=== PATIENT | female | born 1970 | race Caucasian/White ===

== ENCOUNTER 2019-04-15 08:17 | Inpatient (IN) | payer OTHER ==
[~2019-04-15 08:17] MED LIST: BUPIVACAINE HCL/PF 0.25% (2.5MG/ML) 10 ML VIAL IJ ONE
[2019-04-15 08:54] VITALS: BMI 42.5
[2019-04-15] MEDS ORDERED: MIDAZOLAM HCL 2 MG/2 ML SINGLE DOSE VIAL ONE (09:01)
[2019-04-15] MEDS ORDERED: BUPIVACAINE HCL/PF 0.5% (5 MG/ML) 30 ML VIAL IJ ONE (09:01)
[2019-04-15] MEDS ORDERED: fentaNYL CITRATE 250 MCG/5 ML VIAL ONE (09:20)
[2019-04-15] MEDS ORDERED: PROPOFOL 20 ML ONE ×2 (09:21)
[2019-04-15] MEDS ORDERED: ROCURONIUM BROMIDE 50 MG/5 ML SYRINGE ONE (09:22)
--- NOTE | 2019-04-15 09:44 | HP ---
Admitting History and Physical - Admission Chief Complaint: Morbid obesity History Source: Patient Limitations to Obtaining History: No Limitations - Past Medical History Cardiovascular: Yes: HTN, Hyperlipdemia ...LMP Comment: 10/2018 Endocrine: Yes: Diabetes Mellitus - Past Surgical History Past Surgical History: Yes: Tubal Ligation Additional Past Surgical History: Right bunion surgery - Smoking History Smoking history: Never smoked Have you smoked in the past 12 months: No - Alcohol/Substance Use Hx Alcohol Use: No - Social History ADL: Independent Home Medications - Allergies Allergies/Adverse Reactions: Allergies Allergy/AdvReac Type Severity Reaction Status Date / Time aspirin Allergy Verified 09/30/17 11:05 - Home Medications Home Medications: Ambulatory Orders Atorvastatin Ca [Lipitor] 20 mg PO HS 09/30/17 Enalapril Maleate 2.5 mg PO DAILY 09/30/17 Ferrous Sulfate [Iron] 325 mg PO TID 04/04/19 metFORMIN HCL [Metformin HCl] 1,000 mg PO BID 04/04/19 Docusate Sodium [Colace -] 100 mg PO TID #90 capsule 04/15/19 Famotidine [Pepcid] 20 mg PO BID #60 tablet 04/15/19 Ondansetron [Zofran -] 8 mg PO TID #30 tablet 04/15/19 Oxycodone HCl/Acetaminophen [Percocet 5-325 mg Tablet] 1 - 2 tab PO Q6H #28 tab MDD 4 04/15/19 Family Medical History Family History: Unremarkable Review of Systems - Review of Systems Constitutional: denies: Chills, Fever Cardiovascular: reports: No Symptoms Respiratory: reports: No Symptoms Gastrointestinal: reports: No Symptoms Neurological: reports: No Symptoms Pain Intensity: 0 Physical Examination Vital Signs: Vital Signs Temperature 98.2 F 04/15/19 08:38 Pulse Rate 56 L 04/15/19 08:38 Respiratory Rate 18 04/15/19 08:38 Blood Pressure 147/74 04/15/19 08:38 O2 Sat by Pulse Oximetry (%) Constitutional: Yes: Calm Cardiovascular: Yes: WNL Respiratory: Yes: Regular Gastrointestinal: Yes: Soft, Abdomen, Obese Neurological: Yes: Alert, Oriented Problem List - Problems (1) Morbid obesity due to excess calories Code(s): E66.01 - MORBID (SEVERE) OBESITY DUE TO EXCESS CALORIES (2) BMI 40.0-44.9, adult Code(s): Z68.41 - BODY MASS INDEX (BMI) 40.0-44.9, ADULT (3) Diabetes mellitus type 2 in obese Code(s): E11.69 - TYPE 2 DIABETES MELLITUS WITH OTHER SPECIFIED COMPLICATION; E66.9 - OBESITY, UNSPECIFIED (4) Hypertension Code(s): I10 - ESSENTIAL (PRIMARY) HYPERTENSION Qualifiers: Hypertension type: unspecified Qualified Code(s): I10 - Essential (primary ) hypertension (5) Hyperlipidemia Code(s): E78.5 - HYPERLIPIDEMIA, UNSPECIFIED Qualifiers: Hyperlipidemia type: unspecified Qualified Code(s): E78.5 - Hyperlipidemia , unspecified Assessment/Plan Laparoscopic possible open vertical sleeve gastrectomy possible liver biopsy possible upper endoscopy
[2019-04-15] MEDS ORDERED: BUPIVACAINE HCL 0.25% 125 MG/50 ML VIAL ONE (10:13)
[2019-04-15] MEDS ORDERED: ONDANSETRON 4 MG/2 ML VIAL IVPUSH PRN (10:13)
[2019-04-15] MEDS ORDERED: TERBUTALINE SULFATE 1 MG/1 ML VIAL SQ ONE (10:34)
[2019-04-15] MEDS ORDERED: ceFAZolin SODIUM 1 GM VIAL ONE ×3 (10:36)
[2019-04-15] MEDS ORDERED: DEXAMETHASONE SOD PHOSPHATE 4 MG/1 ML VIAL ONE (10:41)
[2019-04-15] MEDS ORDERED: ONDANSETRON 4 MG/2 ML VIAL ONE (10:41)
[2019-04-15] MEDS ORDERED: HYDROmorphone HCL/PF 1 MG/ML AMP ONE (11:00)
[2019-04-15] MEDS ORDERED: NEOSTIGMINE METHYLSULFATE 0.5 MG/ML - 10 ML MDV ONE (11:09)
[2019-04-15] MEDS ORDERED: GLYCOPYRROLATE 0.2 MG/1 ML VIAL ONE ×4 (11:10)
[2019-04-15] MEDS ORDERED: LIDOCAINE HCL/PF 2% SDV 5ML VIAL ONE (11:18)
[2019-04-15] MEDS ORDERED: FAMOTIDINE 20 MG/50 ML IVPB 20 MG/50 ML MG IVPB ONE (11:32)
[2019-04-15] MEDS ORDERED: BUPIVACAINE HCL/PF 0.25% (2.5MG/ML) 10 ML VIAL IJ ONE (11:32)
--- NOTE | 2019-04-15 11:35 | OP ---
Operative Note - Note: Operative Date: 04/15/19 Pre-Operative Diagnosis: Morbid obesity. DM type 2. Hypertension. hyperlipidemia. BMI 42.5 Operation: Daignostic laparoscopy. Laparoscopic vertical sleeve gastrectomy. Laparoscopic wedge liver biopsy. Laparoscopic oversewing of oozing gastric staple line Post-Operative Diagnosis: Same as Pre-op (as well as hepatomegaly and oozing from gastric staple line) Surgeon: Sterling Vyas Pvc Monitor: Desean Morrissey Anesthesia: General Specimens Removed: Greater curvature of stomach. Liver biopsy Estimated Blood Loss (mls): 30 Drains & Tubes with Location: 36 fr Bougie Operative Report Dictated: Yes
[2019-04-15] MEDS: METOCLOPRAMIDE HCL INJECTION 10 MG/2 ML VIAL IVPUSH SCH ×3 (11:45→23:13)
[2019-04-15] MEDS ORDERED: FAMOTIDINE 20 MG PREMIXED IVPB IVPB ONE (11:50)
--- NOTE | 2019-04-15 12:06 | SPEC ---
DATE OF OPERATION: 04/15/2019 PLACE OF SURGERY: [facility], [address] [place] [address] SURGEON: Sterling Vyas MD CHINCHILLA MACHINE OPERATOR: Desean Morrissey MD PREOPERATIVE DIAGNOSES: 1. Morbid obesity. 2. Diabetes mellitus type 2. 3. Hypertension. 4. Hypercholesterolemia. 5. BMI 42.5. POSTOPERATIVE DIAGNOSES: 1. Morbid obesity. 2. Diabetes mellitus type 2. 3. Hypertension. 4. Hypercholesterolemia. 5. BMI 42.5. 6. Hepatomegaly. 7. Bleeding at the gastric staple line. PROCEDURE: 1. Diagnostic laparoscopy. 2. Laparoscopic vertical sleeve gastrectomy. 3. Laparoscopic wedge liver biopsy. 4. Laparoscopic oversewing of gastric staple line. SPECIMEN: 1. Greater curvature of the stomach. 2. Liver biopsy. ESTIMATED BLOOD LOSS: 30 mL. DRAINS: None. ANESTHESIA: GET. BOUGIE SIZE: 36-Wolof. REASON FOR PROCEDURE: This is a 48-year-old female who presented to the office for weight loss options. After describing different options, it was decided to proceed with laparoscopic, possible open vertical sleeve gastrectomy, possible liver biopsy, possible upper endoscopy. RISKS AND BENEFITS: After describing the different options for weight loss management, the patient decided to proceed with a laparoscopic, possible open vertical sleeve gastrectomy. The patient was seen by the respective subspecialties and cleared for surgery. The risks and benefits of the procedure were explained. These included bleeding, infection, hernia, MO, DVT, PE, injury to surrounding structures including the liver, colon, bowel, spleen, esophagus, vessel injury, nerve injury, weight regain, gastric leak, staple line leak, sleeve leak, obstruction, vitamin deficiency, hair loss and as some of the possible complications. The patient understood and signed informed consent. DESCRIPTION OF PROCEDURE: The patient was placed supine on the operating room table. The patient underwent general endotracheal intubation. The arms were brought out at 90 degrees and secured. A footboard was placed and the legs were secured laterally with padding. The abdomen was prepped and draped in the usual sterile fashion. A timeout was performed. An incision was made in the left upper quadrant and a Veress needle inserted. Pneumoperitoneum was established. Subsequently, the Veress needle was removed and a 5-mm trocar was placed under direct visualization with the laparoscope. The laparoscopic camera was then inserted and inspection of the abdominal cavity was performed. An incision was then made in the supraumbilical area and a 15-mm trocar was placed under direct visualization. A 5-mm trocar was then placed in the right upper quadrant and a 5-mm trocar was placed below the left subcostal margin. A stab wound was made in the subxiphoid area and a Nini clamp inserted and removed to dilate the tract. A Rocco liver retractor was inserted. The post was secured at the bedside by the nursing staff. The patient was placed in steep reverse Trendelenburg position and the Rocco liver retractor was used to secure the liver towards the anterior abdominal wall. The pylorus was identified and 6 cm proximal to it, the lesser sac was entered using the LigaSure device. All lateral attachments to the greater curvature of the stomach, including the short gastric vessels, were ligated using the LigaSure device toward the gastrosplenic and gastrophrenic ligaments. Once this was done in its entirety, it was confirmed that all tubes within the nasal or oropharyngeal cavity, including a temperature probe were removed by Anesthesia. The bougie was then inserted by Anesthesia. Transection of the stomach was then begun staying adjacent to the bougie but away from the angularis. Transection of the stomach was performed near the portion of the stomach where the lesser sac was entered. Two laparoscopic Endo-YOHAN black inge were used at this location. Laparoscopic Endo YOHAN purple staple loads were then used for the remainder of the transection until the greater curvature of the stomach was fully transected. This was done staying close to the bougie. Care was taken to stay away from the angle of His cephalad. The staple line was then inspected. Hemostasis was identified. A leak test was then performed. It was clamped distally to the staple line. Irrigation solution was placed in the left upper quadrant and air was insufflated by Anesthesia into the sleeve. No leaks were identified. No obstruction was identified. This was done through the entirety of the staple line. The stomach was suctioned and the bougie removed fully intact under direct visualization. At this point, the irrigation solution was suctioned and again, hemostasis was noted. A wedge liver biopsy was then performed. The left lobe of the liver was identified. A portion of the edge of the left lobe of the liver was grasped. Using electrocautery, a wedge of the left liver was excised. The specimen was removed and sent off the field. Hemostasis of the wedge liver biopsy site was attained and noted using electrocautery. The 15-mm supraumbilical trocar was then removed and the greater curvature specimen removed from the site using a sponge stick gomez. A Raffaele-Eliseo device was then used to close the fascia with a 0 Vicryl suture at the site. Again, hemostasis was noted. The Rocco liver retractor was then removed under direct visualization. Pneumoperitoneum was desufflated. Hemostasis was noted at all incision sites and Marcaine was injected at all incision sites. A 3-0 Vicryl suture was used to close the deep subcutaneous tissue at the 15-mm incision site. All incision sites were closed using 4-0 Biosyn. Sterile dressings were applied. The patient tolerated the procedure well and was transferred to the recovery room in stable condition. ADDENDUM: Because of oozing at the gastric staple line, this was oversewn using the Endo Stitch device. After the staple line was oversewn, hemostasis was noted. The patient tolerated the procedure well, returned to recovery in stable condition. Ashtyn WILCOX/[id number]
[2019-04-15] MEDS: ACETAMINOPHEN 1000 MG/100 ML VIAL (NON FORMULARY) IVPB SCH ×3 (12:30→23:12)
[2019-04-15 12:44] LABS: HEMATOCRIT 34.5 % (32.4-45.2); HEMOGLOBIN 11.8 GM/dl (10.7-15.3); MCH 29.4 pg (25.7-33.7); MCHC 34.1 g/dl (32.0-36.0); MEAN CELL VOLUME 86.2 fl (80-96); PLATELET COUNT 163 K/MM3 (134-434); RDW 15.8 % (11.6-15.6); WHITE BLOOD COUNT 12.6 K/mm3 (4.0-10.8)
[2019-04-15 12:59] LABS: ALBUMIN 3.7 g/dl (3.4-5.0); BILIRUBIN,TOTAL 0.4 mg/dl (0.2-1); CALCIUM 8.8 mg/dl (8.5-10); CREATININE 0.6 mg/dl (0.55-1.3); POTASSIUM 3.9 mmol/L (3.5-5.1); TOT PROT 6.8 g/dl (6.4-8.2)
[2019-04-15] MEDS: ENALAPRIL MALEATE 2.5 MG TABLET (FP) PO SCH (13:41)
[2019-04-15] MEDS: INSULIN SLIDING SCALE (NOVOLOG) 1 VIAL SQ SCH ×2 (13:41→17:32)
[2019-04-15] MEDS: SODIUM CHLORIDE 1,000 ML IV SCH (13:42)
[2019-04-15] MEDS: ONDANSETRON 4 MG/2 ML VIAL IVPUSH SCH ×4 (13:42→23:13)
[2019-04-15] MEDS: HYDROmorphone HCL CARPU-JECT 1 MG/1 ML DISP.SYRIN IVPB PRN ×2 (16:15→20:05)
[2019-04-15] MEDS ORDERED: ENALAPRIL MALEATE 2.5 MG TABLET (FP) PO ONE (16:30)
[2019-04-15] MEDS: ENOXAPARIN NA (PORCINE) 40 MG/0.4 ML DISP.SYRIN SQ SCH (22:11)
[2019-04-15] MEDS: FAMOTIDINE 20 MG/50 ML IVPB 20 MG/50 ML MG IVPB SCH (22:11)
[2019-04-16] MEDS: ONDANSETRON 4 MG/2 ML VIAL IVPUSH SCH ×4 (03:02→17:09)
[2019-04-16] MEDS: HYDROmorphone HCL CARPU-JECT 1 MG/1 ML DISP.SYRIN IVPB PRN ×2 (03:08→06:41)
[2019-04-16] MEDS: METOCLOPRAMIDE HCL INJECTION 10 MG/2 ML VIAL IVPUSH SCH ×2 (05:56→12:43)
[2019-04-16] MEDS: ACETAMINOPHEN 1000 MG/100 ML VIAL (NON FORMULARY) IVPB SCH (05:56)
[2019-04-16] MEDS: INSULIN SLIDING SCALE (NOVOLOG) 1 VIAL SQ SCH ×3 (06:53→17:09)
--- NOTE | 2019-04-16 07:43 | DS ---
Physical Exam: SUBJECTIVE: Patient seen and examined. Reports she is doing well today. Wants to go home. Has been oob without issue. Voiding. No flatus yet. No n/v. Denies cp/sob, calf pain. OBJECTIVE: Vital Signs Period Temp Pulse Resp BP Sys/Leigh Pulse Ox Last 24 Hr 97.8 F-98.5 F 56-77 18-20 131-172/67-95 95-100 PHYSICAL EXAM GENERAL: The patient is awake, alert, and fully oriented, in no acute distress. HEAD: Normal with no signs of trauma. LUNGS: Unlabored on RA. No accessory muscle use. ABDOMEN: Soft, minimally ttp at incision sites. Nondistended, normoactive bowel sounds, no guarding, no rebound. Bandages c/d/i. EXTREMITIES: 2+ pulses, warm, well-perfused, no edema. No calf ttp. LABS Laboratory Results - last 24 hr 04/15/19 04/15/19 04/15/19 08:37 08:40 09:30 WBC RBC Hgb Hct MCV MCH MCHC RDW Plt Count MPV Sodium Potassium Chloride Carbon Dioxide Anion Gap BUN Creatinine Est GFR (CKD-EPI)AfAm Est GFR (CKD-EPI)NonAf POC Glucometer 139 Random Glucose Calcium Total Bilirubin AST ALT Alkaline Phosphatase Total Protein Albumin Urine HCG, Qual Negative Hep C Ab Diagnostic HIV 1&2 Ag/Ab, 4th Gen Non reactive 04/15/19 04/15/19 04/15/19 12:20 12:20 12:20 WBC 12.6 H RBC 4.00 Hgb 11.8 Hct 34.5 MCV 86.2 MCH 29.4 MCHC 34.1 RDW 15.8 H Plt Count 163 MPV 9.0 Sodium 136 Potassium 3.9 Chloride 103 Carbon Dioxide 25 Anion Gap 8 BUN 12.0 Creatinine 0.6 Est GFR (CKD-EPI)AfAm 124.05 Est GFR (CKD-EPI)NonAf 107.03 POC Glucometer Random Glucose 153 H Calcium 8.8 Total Bilirubin 0.4 AST 37 ALT 34 Alkaline Phosphatase 85 Total Protein 6.8 Albumin 3.7 Urine HCG, Qual Hep C Ab Diagnostic 0.1 HIV 1&2 Ag/Ab, 4th Gen 04/15/19 04/15/19 04/16/19 13:10 17:30 06:52 WBC RBC Hgb Hct MCV MCH MCHC RDW Plt Count MPV Sodium Potassium Chloride Carbon Dioxide Anion Gap BUN Creatinine Est GFR (CKD-EPI)AfAm Est GFR (CKD-EPI)NonAf POC Glucometer 170 193 152 Random Glucose Calcium Total Bilirubin AST ALT Alkaline Phosphatase Total Protein Albumin Urine HCG, Qual Hep C Ab Diagnostic HIV 1&2 Ag/Ab, 4th Gen HOSPITAL COURSE: HOSPITAL COURSE: The patient was admitted to the Med-Surg Unit after elective bariatric surgery. Now, s/p laparoscopic vertical sleeve gastrectomy. The day of surgery, the patient ambulated the hallways with assistance. The patient was monitored with remote tele/continuous pulse ox. Narcotic and non-narcotic pain management control was achieved with oral and IV pain control. Upper GI series was obtained the following morning and no leak, extravastion or gastric outlet obstruction. Started on a Bariatric Stage 1 diet and tolerated well. Maxine-operative IV ABX were administered in addition to GI prophylaxis. DVT prophylaxis was achieved with SCDs and early ambulation. The discharge instructions and an oral pain management plan were reviewed with the patient. All questions answered. Above plan discussed with Dr. Vyas and agreed. Date of Admission:04/15/19 Date of Discharge: 04/16/19 Minutes to complete discharge: 20 Discharge Summary Problems reviewed: Yes Reason For Visit: MORBID OBESITY Current Active Problems BMI 40.0-44.9, adult (Acute) Diabetes mellitus type 2 in obese (Acute) Hepatomegaly (Acute) Hyperlipidemia (Acute) Hypertension (Acute) Morbid obesity due to excess calories (Acute) Condition: Stable - Instructions Diet, Activity, Other Instructions: [facility] Sterling Vyas M.D. [address] [facility] 5th [place] [address] Robotic, [place] [address] Postoperative Instructions for Bariatric Surgery Activity: Resume normal everyday activity as tolerated. You may walk and climb stairs without any limitation. We encourage you to walk as often as you can Do not lift anything more than 10 pounds for 8 weeks. At that time, you can return to full activity, including the gym, without limitation. Do not drive a motor vehicle while taking prescribes narcotic pain medication. Wound Care: If you have a bandage in place, leave it on for 3 days. At that time you may remove the outer bandage. If there are strips of tape on the skin after removing the outer bandage, leave them in place. They will fall off by themselves. Do not remove them. If there is clear glue on the skin after removing the outer bandage, leave it in place. Do not pick at it or peel it off. You may shower after taking the outer bandage off, 3 days after your surgery. If incisions become red, warm or open, please call the office. Diet: Continue a sugar-free, non-carbonated Clear liquid diet three times a day for the first week-Stage I diet. In addition, you should drink 8 ounces of water every hour. When drinking, sips should be slow and steady, not large and quick. After the first week, call the office to be advanced to the next dietary stage. Do not advance stages until instructed. Your diet will be advanced over the phone each week. Medications/Pain Management: You may resume previous medications unless told otherwise. The pills may be swallowed whole or broken if scored. You may take the prescribed narcotic pain medication as needed. If the narcotic medication is not needed for pain control, you may take Tylenol. Avoid all other pain medications including Advil, Ibuprofen, Motrin, Aspirin, Naprosyn, Aleve, Celebrex. You will receive Pepcid. Please take this twice a day as prescribed. Dizziness,Headaches/Gas Pain: Make sure you are getting enough fluids daily. Patients on diuretics or water pills may need medication adjusted. Some fluids such as broth or Gatorade may help. Gas pains are common in the first few weeks after surgery. At times they can be worse than surgical pain. Walking can help. You can also use Mylanta, Maalox, or Gas-X. Vomiting/Nausea: This may occur if you eat too fast, don't chew, or eat too much. Go back to fluids. If the vomiting or nausea persists, call the office. Constipation/Diarrhea: You may experience a change in bowel habits. Many things affect this, including a decrease in food intake, not enough fluid and taking pain medication. Some people experience diarrhea after the barium swallow in x-ray. If either persist, call the office. Follow up: Call the office at [phone] for an appointment 2 weeks after your surgical procedure. Disposition: HOME - Home Medications Comprehensive Discharge Medication List: Ambulatory Orders Atorvastatin Ca [Lipitor] 20 mg PO HS 09/30/17 Enalapril Maleate 2.5 mg PO DAILY 09/30/17 Ferrous Sulfate [Iron] 325 mg PO TID 04/04/19 metFORMIN HCL [Metformin HCl] 1,000 mg PO BID 04/04/19 Cholecalciferol (Vitamin D3) [Vitamin D3] 1,000 unit PO DAILY 04/15/19 Cyanocobalamin (Vitamin B-12) [B-12] 1,000 mcg PO DAILY 04/15/19 Docusate Sodium [Colace -] 100 mg PO TID #90 capsule 04/15/19 Famotidine [Pepcid] 20 mg PO BID #60 tablet 04/15/19 Naproxen Sodium [Aleve] 220 mg PO DAILY PRN 04/15/19 Ondansetron [Zofran -] 8 mg PO TID #30 tablet 04/15/19 Oxycodone HCl/Acetaminophen [Percocet 5-325 mg Tablet] 1 - 2 tab PO Q6H #28 tab MDD 4 04/15/19 Problem List - Problems (1) Morbid obesity due to excess calories Code(s): E66.01 - MORBID (SEVERE) OBESITY DUE TO EXCESS CALORIES This patient is new to me today: Yes Date on this admission: 04/17/19 Emergency Visit: No Critical Care patient: No - Discharge Referral Referred to [facility] No
[2019-04-16 07:53] LABS: HEMATOCRIT 34.5 % (32.4-45.2); HEMOGLOBIN 11.4 GM/dl (10.7-15.3); MCH 28.6 pg (25.7-33.7); MEAN CELL VOLUME 86.6 fl (80-96); MEAN PLT VOLUME 9.3 fl (7.5-11.1); PLATELET COUNT 202 K/MM3 (134-434); RBC 3.99 M/mm3 (3.60-5.2); RDW 15.6 % (11.6-15.6); WHITE BLOOD COUNT 9.4 K/mm3 (4.0-10.8)
[2019-04-16 07:59] LABS: ALBUMIN 3.4 g/dl (3.4-5.0); BILIRUBIN,TOTAL 0.4 mg/dl (0.2-1); CALCIUM 8.4 mg/dl (8.5-10); CREATININE 0.6 mg/dl (0.55-1.3); POTASSIUM 4.4 mmol/L (3.5-5.1); TOT PROT 6.3 g/dl (6.4-8.2)
--- NOTE | 2019-04-16 09:05 | PN ---
Progress Note, Physician Chief Complaint: s/p gastric sleeve under general anesthesia History of Present Illness: post op day one - Current Medication List Current Medications: Active Medications Enalapril Maleate (Vasotec -) 2.5 mg PO DAILY [facility] Last Admin: 04/15/19 13:41 Dose: Not Given Enoxaparin Sodium (Lovenox -) 40 mg SQ BID [facility] Last Admin: 04/15/19 22:11 Dose: 40 mg Hydromorphone HCl (Dilaudid Injection -) 1 mg IVPB Q3H PRN PRN Reason: PAIN LEVEL 4 - 6 Last Admin: 04/16/19 06:41 Dose: 1 mg Famotidine/Sodium Chloride (Pepcid 20 Mg Premixed Ivpb -) 20 mg in 50 mls @ 100 mls/hr IVPB BID [facility] Last Admin: 04/15/19 22:11 Dose: 100 mls/hr Sodium Chloride (Normal Saline -) 1,000 mls @ 150 mls/hr IV ASDIR [facility] Last Admin: 04/15/19 13:42 Dose: Not Given Insulin Aspart (Novolog Vial Sliding Scale -) 1 vial SQ TIDAC [facility]; Protocol Last Admin: 04/16/19 06:53 Dose: Not Given Metoclopramide HCl (Reglan Injection -) 10 mg IVPUSH Q6H [facility] Last Admin: 04/16/19 05:56 Dose: 10 mg Ondansetron HCl (Zofran Injection) 4 mg IVPUSH Q4H [facility] Last Admin: 04/16/19 06:42 Dose: 4 mg - Objective Vital Signs: Vital Signs Temperature 98.2 F 04/16/19 06:00 Pulse Rate 63 04/16/19 06:00 Respiratory Rate 18 04/16/19 06:00 Blood Pressure 144/73 04/16/19 06:00 O2 Sat by Pulse Oximetry (%) 96 04/16/19 08:02 Constitutional: Yes: Well Nourished Cardiovascular: Yes: WNL Respiratory: Yes: WNL Gastrointestinal: Yes: Tenderness Labs: CBC, BMP 04/16/19 07:05 04/16/19 07:05 Assessment/Plan No adverse events, nausea and vomiting are controlled, dept of anesthesiology will sign off care at this time
[2019-04-16] MEDS ORDERED: PT OWN MED DRAWER 7, Y5N ONE (09:44)
[2019-04-16] MEDS: FAMOTIDINE 20 MG/50 ML IVPB 20 MG/50 ML MG IVPB SCH (09:49)
[2019-04-16] MEDS: ENALAPRIL MALEATE 2.5 MG TABLET (FP) PO SCH (09:49)
[2019-04-16] MEDS: ENOXAPARIN NA (PORCINE) 40 MG/0.4 ML DISP.SYRIN SQ SCH (09:49)
[2019-04-16] MEDS: SODIUM CHLORIDE 1,000 ML IV SCH (12:46)
[2019-04-16 13:40] VITALS: BP 164/69; PULSE 64; TEMP 98.4
--- NOTE | 2019-04-17 15:58 | PATH ---
Surgical Pathology Report Patient Name: GREG MIRZA Med. Rec. #: [id number] /Age/Gender: 1970 (Age: 48) / F Account: [id number] Location: [facility] Taken: 04/15/2019 Received: 04/15/2019 Reported: 04/17/2019 Physicians: Sterling Vyas M.D. Specimen(s) Received A: GREATER CURVATURE STOMACH B: LIVER BIOPSY Clinical History Morbid obesity Final Diagnosis A. GREATER CURVATURE, STOMACH, LAPAROSCOPIC GASTRIC SLEEVE EXCISION:: PORTION OF STOMACH SHOWING MILD CHRONIC MUCOSAL INFLAMMATION. IMMUNOSTAIN IS NEGATIVE FOR H. PYLORI ORGANISMS. B. LIVER, BIOPSY: LIVER SHOWING MILD STEATOSIS (10-15%) AND MILD STEATOHEPATITIS (GRADE 1). TRICHROME STAIN SHOWS NO APPRECIABLE INCREASE IN FIBROSIS. IRON STAIN IS NEGATIVE. Electronically Signed Rosa Gorman M.D. Gross Description A. Received in formalin, labeled "greater curvature of stomach," is a 17.5 x 3.3 x 2.2 cm. portion of stomach with a stapled margin of resection. The serosa is presley-potts with minimal attached fat. The mucosa is presley-pink with normal folds. No mucosal masses are identified. [address] sections are submitted in one cassette. B. Received in formalin, labeled "liver biopsy" is a 1.8 x 1.7 x 0.8 cm portion of yellow-brown tissue. The specimen is sectioned and entirely submitted in one cassette. AE/04/16/2019 ebram/04/16/2019
== END 2019-04-16 16:58 | disposition home or self-care (01) | DRG 403 ==
LOC: FM/S 08:17
PROVIDERS: ADMIT Surgery; ATTEND Surgery
PROC: 0DJ04ZZ Inspection of Upper Intestinal Tract, Percutaneous Endoscopic Approach (ICD-10-PCS; 2019-04-15)
PROC: 0DB64Z3 Excision of Stomach, Percutaneous Endoscopic Approach, Vertical (ICD-10-PCS; principal; 2019-04-15 10:44)
PROC: 0FB24ZX Excision of Left Lobe Liver, Percutaneous Endoscopic Approach, Diagnostic (ICD-10-PCS; 2019-04-15 10:44)
DX: E66.01 Morbid (severe) obesity due to excess calories (principal); Z68.41 Body mass index [BMI] 40.0-44.9, adult; I10 Essential (primary) hypertension; E78.5 Hyperlipidemia, unspecified; E11.9 Type 2 diabetes mellitus without complications; R16.0 Hepatomegaly, not elsewhere classified
CPT/HCPCS: 36415; 74241-TC-FY; 80053; 82962; 84703; 85027; 86803; 87389; 88305-TC; 88313-TC; 88342-TC; 94760; J0131; J7030

== ENCOUNTER 2020-09-14 09:05 | Inpatient (IN) | payer OTHER ==
[2020-09-04 11:27] VITALS: BMI 35.5
[2020-09-14] MEDS ORDERED: BUPIVACAINE HCL/PF 0.5% (5 MG/ML) 30 ML VIAL IJ ONE (10:45)
[2020-09-14] MEDS ORDERED: MIDAZOLAM HCL 2 MG/2 ML SINGLE DOSE VIAL ONE ×3 (10:45→14:05)
[2020-09-14] MEDS ORDERED: BUPIVACAINE HCL 50 ML ONE (11:46)
[2020-09-14] MEDS ORDERED: SUCCINYLCHOLINE CHLORIDE 200 MG/10 ML SYRINGE ONE (11:53)
[2020-09-14] MEDS ORDERED: PROPOFOL 20 ML ONE ×7 (11:53→14:01)
[2020-09-14] MEDS ORDERED: ePHEDrine SULFATE 50 MG/1 ML AMPULE ONE (12:09)
[2020-09-14] MEDS ORDERED: TRANEXAMIC ACID 1000 MG/10 ML VIAL ONE (12:12)
[2020-09-14] MEDS ORDERED: KETOROLAC TROMETHAMINE 30 MG/1 ML VIAL ONE (12:13)
[2020-09-14] MEDS ORDERED: ONDANSETRON 4 MG/2 ML VIAL ONE (12:13)
[2020-09-14] MEDS ORDERED: DEXAMETHASONE SOD PHOSPHATE 4 MG/1 ML VIAL ONE (12:13)
[2020-09-14] MEDS ORDERED: ceFAZolin SODIUM 1 GM VIAL ONE (12:13)
[2020-09-14] MEDS ORDERED: VANCOMYCIN 1,000 MG VIAL (RESTRICTED TO ID ONLY) ONE (12:30)
[2020-09-14] MEDS ORDERED: BUPIVICAINE 0.25%/MORPH PF/KETOROLAC - 51ML DISP.SYRINGE IA ONE ×2 (12:53→14:49)
[2020-09-14 13:36] LABS: HIV INTERPRETATION NEGATIVE (NEGATIVE)
[2020-09-14] MEDS ORDERED: ONDANSETRON 4 MG/2 ML VIAL IVPUSH PRN (15:37)
[2020-09-14] MEDS ORDERED: MAG HYDROX/AL HYDROX/SIMETH 30 ML UNIT-DOSE CUP PO PRN (15:37)
[2020-09-14] MEDS ORDERED: MAGNESIUM HYDROX 2400MG/30ML ORAL SUSPENSION 30 ML CUP PO PRN (15:37)
[2020-09-14] MEDS ORDERED: oxyCODONE HCL 5 MG TABLET PO PRN ×2 (15:42)
[2020-09-14] MEDS ORDERED: LACTATED RINGERS SOLUTION 1,000 ML IV SCH (15:45)
[2020-09-14] MEDS: ACETAMINOPHEN 325 MG TABLET (FP) PO SCH ×2 (17:10→21:19)
[2020-09-14] MEDS: CEFAZOLIN 2 GM/D5W 2 GM/50 ML ML IVPB SCH (20:00)
[2020-09-14] MEDS: GABAPENTIN 300 MG CAPSULE PO SCH (21:19)
[2020-09-14] MEDS: FERROUS SO4 325 MG TABLET (FP) PO SCH (21:19)
[2020-09-14] MEDS: oxyCODONE HCL 10 MG SUSTAINED ACTING TABLET PO SCH (21:30)
[2020-09-14] MEDS: SENNOSIDES/DOCUSATE COMBO (SENNA PLUS) TABLET (UD) PO SCH (21:30)
[2020-09-14] MEDS: INSULIN SLIDING SCALE (NOVOLOG) 1 VIAL SQ SCH (21:31)
[2020-09-14] MEDS ORDERED: GABAPENTIN 300 MG CAPSULE PO SCH (22:00)
[2020-09-14] MEDS ORDERED: ATORVASTATIN CA 20 MG TABLET (FP) PO SCH (22:00)
[2020-09-15] MEDS: CEFAZOLIN 2 GM/D5W 2 GM/50 ML ML IVPB SCH ×2 (03:11→14:45)
[2020-09-15] MEDS: ACETAMINOPHEN 325 MG TABLET (FP) PO SCH ×3 (03:11→16:56)
[2020-09-15] MEDS: FERROUS SO4 325 MG TABLET (FP) PO SCH ×2 (06:17→14:44)
[2020-09-15] MEDS: INSULIN SLIDING SCALE (NOVOLOG) 1 VIAL SQ SCH ×3 (06:17→16:57)
[2020-09-15 08:15] LABS: HEMATOCRIT 27.6 % (32.4-45.2); HEMOGLOBIN 9.2 GM/dl (10.7-15.3); MCH 29.7 pg (25.7-33.7); MCHC 33.4 g/dl (32.0-36.0); MEAN CELL VOLUME 88.9 fl (80-96); PLATELET COUNT 141 K/MM3 (134-434); RDW 13.7 % (11.6-15.6); WHITE BLOOD COUNT 6.2 K/mm3 (4.0-10.8)
[2020-09-15 08:16] LABS: CALCIUM 8.5 mg/dl (8.5-10); CREATININE 0.8 mg/dl (0.55-1.3); POTASSIUM 4.5 mmol/L (3.5-5.1)
[2020-09-15] MEDS ORDERED: SODIUM CHLORIDE 500 ML IV STA (09:58)
[2020-09-15] MEDS ORDERED: ENOXAPARIN NA (PORCINE) 30 MG/0.3 ML DISP.SYRIN SQ SCH ×2 (10:00)
[2020-09-15] MEDS ORDERED: MULTIVITAMINS (DAILY MVI) TABLET (FP) PO SCH (10:00)
[2020-09-15] MEDS ORDERED: PANTOPRAZOLE 40 MG TABLET PO SCH (10:00)
[2020-09-15] MEDS ORDERED: ENALAPRIL MALEATE 2.5 MG TABLET PO SCH (10:00)
[2020-09-15] MEDS: oxyCODONE HCL 10 MG SUSTAINED ACTING TABLET PO SCH (10:29)
[2020-09-15] MEDS: SENNOSIDES/DOCUSATE COMBO (SENNA PLUS) TABLET (UD) PO SCH (10:29)
[2020-09-15] MEDS: GABAPENTIN 300 MG CAPSULE PO SCH (10:29)
[2020-09-15 14:26] VITALS: BP 93/41; PULSE 66; TEMP 98.6
== END 2020-09-15 17:30 | disposition home or self-care (01) | DRG 301 ==
LOC: FM/S 09:05
PROVIDERS: ADMIT Orthopaedic Surgery Sports Medicine; ATTEND Nurse Practitioner Acute Care
PROC: 8E0Y0CZ Robotic Assisted Procedure of Lower Extremity, Open Approach (ICD-10-PCS; 2020-09-14)
PROC: 0SR90JZ Replacement of Right Hip Joint with Synthetic Substitute, Open Approach (ICD-10-PCS; principal; 2020-09-14 12:26)
DX: M16.11 Unilateral primary osteoarthritis, right hip (principal); I10 Essential (primary) hypertension; E78.5 Hyperlipidemia, unspecified; D64.9 Anemia, unspecified; E11.9 Type 2 diabetes mellitus without complications; Z79.84 Long term (current) use of oral hypoglycemic drugs
CPT/HCPCS: 36415; 73502-TC-RT-FY; 80048; 82962; 85027; 86803; 87389; 94760; 97010-GP; 97116-GP; 97162-GP

== ENCOUNTER 2021-08-16 10:14 | Emergency (ER) | payer OTHER ==
[2021-08-16 10:36] VITALS: BP 138/81; PULSE 56; TEMP 98.2; BMI 35.5
[2021-08-16] MEDS ORDERED: METHOCARBAMOL 500 MG TABLET PO ONE (11:30)
[2021-08-16] MEDS ORDERED: ACETAMINOPHEN 325 MG TABLET (FP) PO ONE (11:30)
[2021-08-16] MEDS ORDERED: KETOROLAC TROMETHAMINE 60 MG/2 ML VIAL IM ONE (11:30)
[2021-08-16] MEDS ORDERED: LIDOCAINE 5% TOPICAL PATCH TP ONE (11:31)
[2021-08-16] MEDS ORDERED: ACETAMINOPHEN 500 MG TABLET (FP) ONE (11:40)
[2021-08-16] MEDS ORDERED: METHOCARBAMOL 500 MG TABLET ONE (11:40)
[2021-08-16] MEDS ORDERED: KETOROLAC TROMETHAMINE 15 MG/ML VIAL ONE (11:40)
[2021-08-16] MEDS ORDERED: LIDOCAINE 5% TOPICAL PATCH ONE (11:40)
== END 2021-08-16 13:03 | disposition home or self-care (01) ==
LOC: JER 10:14 → JERFT 10:14
PROC: 3E0233Z Introduction of Anti-inflammatory into Muscle, Percutaneous Approach (ICD-10-PCS; principal; 2021-08-16)
DX: M54.42 Lumbago with sciatica, left side (principal)
CPT/HCPCS: 96372; 99284-25

== ENCOUNTER 2023-08-21 15:00 | Emergency (ER) | payer OTHER ==
[2023-08-21 15:34] VITALS: RESP 18; BMI 36.8
[2023-08-21] MEDS ORDERED: ACETAMINOPHEN 500 MG TABLET (FP) ONE (18:40)
[2023-08-21] MEDS: ACETAMINOPHEN 500 MG TABLET (FP) PO ONE (18:42)
[2023-08-21 19:51] VITALS: BP 132/64; PULSE 54; TEMP 99.1
== END 2023-08-21 20:32 | disposition home or self-care (01) ==
LOC: JERFT 15:00 → JER 15:00 → JERFT 20:32
DX: M54.9 Dorsalgia, unspecified (principal); R11.0 Nausea; J00 Acute nasopharyngitis [common cold]; R05.9 Cough, unspecified
CPT/HCPCS: 71046-TC-FY; 93005; 93010; 99283-25